=== PATIENT | male | born 1960 | race African-American/Black ===

== ENCOUNTER 2022-01-06 19:09 | Observation (INO) ==
[2022-01-06] MEDS ORDERED: ONDANSETRON 4 MG/2 ML VIAL IV ONE (19:33)
[2022-01-06] MEDS ORDERED: MORPHINE 2 MG/1 ML SYRINGE IV STA (19:33)
[2022-01-06 20:43] LABS: Basophils # 0.1 10*3/uL (0.0-0.2); Basophils % 0.5 % (0.0-0.8); Eosinophils # 0.2 10*3/uL (0.0-0.87); Eosinophils % 1.5 % (0.00-10.9); Hematocrit 44.4 VOL% (42.0-52.0); Hemoglobin 13.9 GM/DL (14.0-18.0); Immature Granulocytes % 0.3 %; Immature Granulocytes Absolute 0.03 #; Lymphocytes # 3.4 10*3/uL (1.4-4.0); Lymphocytes % 31.4 % (21.2-54.2); Mean Corpuscular HGB Conc 31.3 GM/DL (32-36); Mean Corpuscular Volume 86.5 FL (87-102); Mean Platelet Volume 14.4 FL (9.6-12.0); Monocytes # 1.1 10*3/uL (0.11-0.8); Monocytes % 10.5 % (1.7-12.7); Neutrophils % 55.8 % (38.7-73.9); Platelet Count 163 T/CUMM (130-400); Red Blood Count 5.13 MC/CUMM (3.8-5.5); Red Cell Distribution Width 14.4 % (9.3-17.3); White Blood Count 10.9 T/CUMM (4-12)
[2022-01-06 20:55] LABS: PT Patient Result 11.5 SECS (10.5-12.0); Partial Thromboplastin Time 29.6 SECS (23.8-32.1)
[2022-01-06 21:00] LABS: Albumin 3.2 G/DL (3.4-5.0); Bilirubin,Total 0.4 MG/DL (0.20-1.00); Calcium 8.9 MG/DL (8.5-10.1); Osmolality,Calculated 273.7 MOS/KG (273-304); Potassium 3.5 MMOL/L (3.5-5.1); Total Protein 6.4 G/DL (6.4-8.2)
[2022-01-06] MEDS ORDERED: HYDROmorphone 1 MG/1 ML SYRINGE IV STA (22:27)
[2022-01-06] MEDS ORDERED: GLUCAGON 1 MG VIAL IM PRN (22:59)
[2022-01-06] MEDS ORDERED: ACETAMINOPHEN 325 MG TABLET PO PRN (22:59)
[2022-01-06] MEDS ORDERED: guaiFENesin/DM ER 600-30 MG TABLET PO PRN (22:59)
[2022-01-06] MEDS ORDERED: DEXTROSE 10% 250 ML BAG IV PRN (22:59)
[2022-01-06] MEDS ORDERED: diphenhydrAMINE CAP 25 MG CAPSULE PO PRN (22:59)
[2022-01-06] MEDS ORDERED: NICOTINE 21 MG/24 HR PATCH TRANSDERM PRN (22:59)
[2022-01-06] MEDS ORDERED: MORPHINE 2 MG/1 ML SYRINGE IV PRN (22:59)
[2022-01-06] MEDS ORDERED: hydrALAZINE 20 MG/1 ML VIAL IV PRN (22:59)
[2022-01-06] MEDS: SODIUM CHLORIDE 0.9% 1,000 ML IV SCH (23:35)
[2022-01-06] MEDS ORDERED: KETOROLAC 30 MG/1 ML VIAL IV ONE (23:58)
[2022-01-07 02:12] LABS: Barbiturates Screen,Urine Negative (Negative); Benzodiazepines Screen,Urine Negative (Negative); Cannabinoid Screen,Urine Negative (Negative); Opiate Screen,Urine Positive (Negative); Phencyclidine Screen,Urine Negative (Negative)
[2022-01-07 03:11] LABS: Basophils # 0.1 10*3/uL (0.0-0.2); Basophils % 0.5 % (0.0-0.8); Eosinophils # 0.2 10*3/uL (0.0-0.87); Eosinophils % 2.3 % (0.00-10.9); Hematocrit 45.4 VOL% (42.0-52.0); Immature Granulocytes % 0.2 %; Immature Granulocytes Absolute 0.02 #; Lymphocytes % 39.9 % (21.2-54.2); Mean Corpuscular HGB Conc 30.8 GM/DL (32-36); Mean Corpuscular Volume 87.8 FL (87-102); Mean Platelet Volume 14.2 FL (9.6-12.0); Monocytes % 9.7 % (1.7-12.7); Neutrophils % 47.4 % (38.7-73.9); Platelet Count 160 T/CUMM (130-400); Red Blood Count 5.17 MC/CUMM (3.8-5.5); Red Cell Distribution Width 14.5 % (9.3-17.3)
[2022-01-07 03:19] LABS: Calcium 8.8 MG/DL (8.5-10.1); Osmolality,Calculated 279.3 MOS/KG (273-304); Potassium 3.4 MMOL/L (3.5-5.1)
[2022-01-07] MEDS: ONDANSETRON 4 MG/2 ML VIAL IV PRN ×2 (06:26→16:22)
[2022-01-07] MEDS ORDERED: POTASSIUM CHLORIDE 20 MEQ TABLET PO ONE (07:48)
[2022-01-07] MEDS: amLODIPine 5 MG TABLET PO SCH (10:14)
[2022-01-07] MEDS: PANTOPRAZOLE 40 MG TABLET PO SCH (10:14)
[2022-01-07] MEDS: BISACODYL 5 MG TABLET PO SCH (10:14)
[2022-01-07] MEDS: HEPARIN 5,000 UNIT/1 ML VIAL SUBCUT SCH ×2 (10:25→22:24)
[2022-01-07 15:07] LABS: Basophils % 0.4 % (0.0-0.8); Eosinophils # 0.3 10*3/uL (0.0-0.87); Eosinophils % 3.1 % (0.00-10.9); Hematocrit 45.3 VOL% (42.0-52.0); Immature Granulocytes % 0.2 %; Immature Granulocytes Absolute 0.02 #; Lymphocytes # 2.9 10*3/uL (1.4-4.0); Lymphocytes % 34.7 % (21.2-54.2); Mean Corpuscular HGB Conc 30.9 GM/DL (32-36); Mean Corpuscular Volume 87.8 FL (87-102); Mean Platelet Volume 14.4 FL (9.6-12.0); Monocytes # 0.7 10*3/uL (0.11-0.8); Monocytes % 8.2 % (1.7-12.7); Neutrophils % 53.4 % (38.7-73.9); Platelet Count 167 T/CUMM (130-400); Red Blood Count 5.16 MC/CUMM (3.8-5.5); Red Cell Distribution Width 14.4 % (9.3-17.3); White Blood Count 8.3 T/CUMM (4-12)
[2022-01-07 15:26] LABS: Calcium 8.5 MG/DL (8.5-10.1); Osmolality,Calculated 283.1 MOS/KG (273-304); Potassium 3.5 MMOL/L (3.5-5.1)
[2022-01-07] MEDS: SODIUM CHLORIDE 0.9% 1,000 ML IV SCH ×2 (16:23→22:49)
[2022-01-07] MEDS ORDERED: KETOROLAC 30 MG/1 ML VIAL IV PRN (16:31)
[2022-01-07] MEDS ORDERED: SUMAtriptan 6 MG/0.5 ML VIAL SUBCUT PRN (16:33)
[2022-01-07] MEDS ORDERED: SUMAtriptan 6 MG/0.5 ML VIAL SUBCUT ONE (16:33)
[2022-01-07] MEDS ORDERED: PROMETHAZINE INJ 12.5 MG in SODIUM CHLORIDE 0.9% 50 ML IV PRN (16:36)
[2022-01-07] MEDS ORDERED: PROMETHAZINE INJ 12.5 MG in SODIUM CHLORIDE 0.9% 50 ML IV ONE (18:00)
[2022-01-08] MEDS: SODIUM CHLORIDE 0.9% 1,000 ML IV SCH ×3 (03:27→19:28)
[2022-01-08] MEDS ORDERED: allopurinoL 100 MG TABLET PO SCH (09:00)
[2022-01-08] MEDS: HEPARIN 5,000 UNIT/1 ML VIAL SUBCUT SCH (10:05)
[2022-01-08] MEDS: PANTOPRAZOLE 40 MG TABLET PO SCH (10:06)
[2022-01-08] MEDS: BISACODYL 5 MG TABLET PO SCH (10:06)
[2022-01-08] MEDS ORDERED: TOPIRAMATE 25 MG TABLET PO SCH (11:30)
[2022-01-08] MEDS: amLODIPine 5 MG TABLET PO SCH (13:30)
[2022-01-08 15:33] VITALS: BP 143/90
== END 2022-01-08 17:50 | disposition home or self-care (01) ==
LOC: N.ED 19:09 → N.EDINP 19:09 → SUATTDRO 22:59 → N.5E 01-07 18:00
PROVIDERS: ADMIT Internal Medicine; ATTEND Internal Medicine